=== PATIENT | male | born 1975 | race Caucasian/White ===

== ENCOUNTER 2019-09-09 13:06 | Outpatient (CLI) | payer BC, SELFPAY ==
--- NOTE | 2019-09-09 13:08 | CT_ITS ---
WS: [id number] CT HEAD TECHNIQUE: Noncontrast CT of the head obtained from the skullbase to the vertex. CLINICAL INFORMATION: AGRICULTURAL ADVISER SHUNT STATUS COMPARISON: DLP: 1058.[address] scans at [facility] use at least one of these dose optimization techniques: automat ed exposure control; mA and/or kV adjustment per patient size (includes targeted exams where dose is matched to clinical indication); or iterative reconstruction. FINDINGS: Stable right AGRICULTURAL ADVISER shunt catheter with tip in the right frontal horn near the foramen of Baron. No hydr ocephalus. No progressive hydrocephalus. Ventricular size has improved compared to previous. Mild pro minence of the third ventricle is slightly improved today measuring 9.6 mm compared to 10.8 mm previo us. Cerebellar atrophy with chronic atrophy of the midbrain and sarah. This is unchanged. Mastoid air cells are well aerated. Mild mucosal thickening in the ethmoid air cells. CT/CT head wo con* [id number] IMPRESSION: 1. Right AGRICULTURAL ADVISER shunt catheter with tip in the right frontal horn. No progressive hydrocephalus. Ventricular size is improved from previous. 2. Stable prominence of the third ventricle measuring 9 mm is slightly improve d from previous. 3. Stable atrophy of the midbrain and sarah with stable cerebellar atrophy. 4. No acute intracranial findings.
--- NOTE | 2019-09-09 13:08 | XR_ITS ---
WS: [id number] SKULL TECHNIQUE: 4 views of the skull CLINICAL INFORMATION: SQUIRREL MAN SHUNT STATUS COMPARISON: None. FINDINGS: Single lateral view of the skull. Programmable shunt valve. Medos shunt valve setting approximately 9 0 mm H20. Previously on November 27, 2018 shunt valve setting was approximately 100 mm H20 XR/XR skull <4V [id number] IMPRESSION: Medos shunt valve setting approximately 90 mm H20
== END 2019-09-09 13:07 | disposition home or self-care (01) ==
LOC: CT 13:12
PROVIDERS: Family Provider Family Medicine; PCP Family Medicine; Visit Provider Licensed Practical Nurse
DX: Z98.2 Presence of cerebrospinal fluid drainage device (principal)
CPT/HCPCS: 70250; 70450

== ENCOUNTER 2020-02-08 10:01 | Outpatient (CLI) | payer BC, SELFPAY ==
--- NOTE | 2020-02-08 10:27 | XR_ITS ---
WS: [id number] Shunt series, 02/08/2020 Clinical Data: Dizziness Comparison: Shunt series, 05/17/2016. Findings: The shunt tube is properly placed through a sin hole in the skull and appears to be in the region of the ventricles. The tube then descends through the right side of the neck, right side of t he chest and into the peritoneum. The tube ends on the left side of the peritoneum. No acute cardiop ulmonary disease or intra-abdominal disease is seen. XR/XR shunt series Impression: Satisfactory placement of ventriculoperitoneal shunt tube.
--- NOTE | 2020-02-08 10:27 | CT_ITS ---
WS: [id number] CT scan of the head, 02/08/2020 Clinical Data: Dizziness Comparison: CT head, 09/09/2019. DLP: 992.[address] scans at [facility] use at least one of these dose optimization techniques: automat ed exposure control; mA and/or kV adjustment per patient size (includes targeted exams where dose is matched to clinical indication); or iterative reconstruction. Findings: The right ventriculoperitoneal shunt catheter enters the right frontal craniotomy site and ends in th e right frontal horn of the right lateral ventricle. The ventricular dilatation has increased. The th ird ventricle now measures 1.3 cm in transverse diameter. The anterior horns, bodies and posterior ho rns of the lateral ventricles have also increased in size. The fourth ventricle is larger than was no naomi before with a greatest diameter of 4.1 cm. No abnormal intracerebral mass, hemorrhage or infarct is seen. The mastoid air cells, internal auditory canals, intraorbital contents, paranasal sinuses an d sella turcica remain the same. CT/CT head wo con* [id number] Impression: 1. Increasing size of the ventricles compared to prior study. 2. Shunt catheter appears to be in the same position compared to the prior stud y.
--- NOTE | 2020-02-10 16:03 | XR_ITS ---
WS: [id number] Lateral skull, 02/10/2020 Clinical Data: S/P BLEACHER LARD shunt Comparison: Shunt series, 02/08/2020. Findings: The shunt tube is overlying the cranial vault. A sin hole is apparent. The shunt tube appears to be in the same position as was seen 2 days ago.
== END 2020-02-08 10:02 | disposition home or self-care (01) ==
PROVIDERS: Family Provider Family Medicine; PCP Family Medicine; Visit Provider Licensed Practical Nurse
DX: R42 Dizziness and giddiness (principal); Z98.2 Presence of cerebrospinal fluid drainage device
CPT/HCPCS: 70250; 70450; 71046; 72040; 74019

== ENCOUNTER 2020-02-10 16:02 | Outpatient (CLI) | payer BC, SELFPAY ==
--- NOTE | 2020-02-10 | XR_ITS ---
WS: [id number] Lateral skull, 02/10/2020 Clinical Data: S/P AEMT shunt Comparison: Shunt series, 02/08/2020. Findings: The shunt tube is overlying the cranial vault. A sin hole is apparent. The shunt tube appears to be in the same position as was seen 2 days ago. XR/XR skull <4V [id number] Impression: No change in appearance of AEMT shunt
== END 2020-02-10 16:03 | disposition home or self-care (01) ==
LOC: RADWPI 16:04
PROVIDERS: Family Provider Family Medicine; PCP Family Medicine; Visit Provider Specialist
DX: Z98.2 Presence of cerebrospinal fluid drainage device (principal)
CPT/HCPCS: 70250

== ENCOUNTER 2020-09-19 13:38 | Outpatient (CLI) | payer OTHER, SELFPAY ==
--- NOTE | 2020-09-19 13:48 | CT_ITS ---
WS: [id number] CT HEAD NONCONTRAST HISTORY: Z92.89 - Personal history of other medical treatment TECHNIQUE: Contiguous axial imaging performed through the brain in 2.5 mm imaging. Bone and soft tiss ue windows. All CT scans at [facility] use at least one of these dose optimization techniq ues: automated exposure control; mA and/or kV adjustment per patient size (includes targeted exams wh ere dose is matched to clinical indication); or iterative reconstruction. DLP: 1058.18 mGycm COMPARISON: 11/09/2019 RIGHT frontal TUBE CUTTER OPERATOR shunt catheter terminates in the midline of the anterior horn of the lateral ventri nola. As compared to the prior examination the ventricles are now more slitlike. Significant decrease in size of the ventricles. 2 mm decrease in size of the third ventricle. Continued enlargement of the RIGHT ventricle with a maximum diameter of 3.8 cm. No hemorrhage. No atrophy or prior infarcts or herniation. Ventricles: Normal size with no hydrocephalus. Paranasal sinuses: As visualized are clear. Mastoid air cells: Well pneumatized. Calvarium and scalp: RIGHT frontal sin hole. CT/CT head wo con* [id number] IMPRESSION: 1. Significant decrease in size the lateral ventricles since 02/08/2020. Latera l ventricles are now slitlike. 2. RIGHT frontal TUBE CUTTER OPERATOR shunt catheter unchanged in position. 3. Minimal decrease in size of the third ventricle and the fourth ventricle s hugh the prior study.
== END 2020-09-19 13:39 | disposition home or self-care (01) ==
LOC: RADWPI 13:41
PROVIDERS: PCP Family Medicine; Visit Provider Licensed Practical Nurse
DX: Z92.89 Personal history of other medical treatment (principal)
CPT/HCPCS: 70450

== ENCOUNTER 2021-02-03 12:19 | Outpatient (CLI) | payer OTHER, MEDICAID, SELFPAY ==
--- NOTE | 2021-02-03 12:26 | CT_ITS ---
WS: [id number] CT HEAD WITHOUT AND WITH CONTRAST. TECHNIQUE: Noncontrast and contrast-enhanced CT of the head. CLINICAL INFORMATION: BILATERAL LOWER EXTRIMITY WEAKNESS AND SHUNT PLACEMENT COMPARISON: September 19, 2020 DLP: 2116.[address] scans at [facility] use at least one of these dose optimization techniques: automat ed exposure control; mA and/or kV adjustment per patient size (includes targeted exams where dose is matched to clinical indication); or iterative reconstruction. FINDINGS: Right frontal shunt catheter tip near the foramen of Baron. No evidence of intracranial hemorrhage. No extra-axial fluid collections. Third ventricle measures 11 mm unchanged from previous. Lateral gypsy tricular system and temporal horns are slightly more prominent compared to previous but remained deco mpressed. Fourth ventricular dilatation measuring 3.8 cm is unchanged. No significant progressive hyd rocephalus. Stable atrophy of the midbrain and sarah with vermian atrophy No abnormal intercranial enhancement. Mastoid air cells and paranasal sinuses are well aerated. CT/CT head wo/w con [id number] IMPRESSION: 1. Right frontal shunt catheter with tip near the foramen of Baron is unchang ed. 2. Third ventricle size is unchanged measuring 11 mm. 3. Minimal progression of the lateral ventricles and temporal horns which zoie in decompressed. 4. Dilatation of the fourth ventricle is stable. 5. No other significant changes.
[2021-02-03] MEDS: iohexol 300 mg/mL 100 mL Btl IV (12:45)
== END 2021-02-03 12:20 | disposition home or self-care (01) ==
LOC: RADWPI 12:24
PROVIDERS: PCP Family Medicine; Visit Provider Family Medicine
DX: M62.81 Muscle weakness (generalized) (principal); Z98.2 Presence of cerebrospinal fluid drainage device
CPT/HCPCS: 70470; Q9967

== ENCOUNTER 2021-03-02 08:19 | Outpatient (CLI) | payer OTHER, MEDICAID, SELFPAY ==
--- NOTE | 2021-03-02 08:38 | CT_ITS ---
WS: [id number] CT LUMBAR SPINE TECHNIQUE: Noncontrast CT of the lumbar spine with coronal and sagittal reformatted images after atte mpted myelogram. CLINICAL INFORMATION: WEAKNESS OF BOTH LOWER EXTREMITIES COMPARISON: None. DLP: 1857.[address] scans at [facility] use at least one of these dose optimization techniques: automat ed exposure control; mA and/or kV adjustment per patient size (includes targeted exams where dose is matched to clinical indication); or iterative reconstruction. FINDINGS: No significant intrathecal contrast. Small amount of mainly subdural contrast opacification. Small right riblet at T12. More normal size left T12 rib. Rudimentary disc space at L5-S1. L5 is cons idered sacralized for the purposes of this dictation. Slight retrolisthesis L4 on L5. No high-grade central canal stenosis. Tapering and narrowing of the t hecal sac distally. Mild hypertrophic changes in the mid lower lumbar spine. Disc space heights relat ively well-preserved. L1-L2: Normal. L2-L3: Mild annular bulging with a tiny shallow central protrusion. Slight effacement of ventral thec al sac. Spinal canal and foramen are patent. Mild facet arthropathy with mild ligamentum flavum hyper trophy. L3-L4: Mild disc bulging with slight osteophytic ridging. Slight effacement of ventral thecal sac. Mi ld central canal stenosis. Moderate facet arthropathy with ligamentum flavum hypertrophy. Mild bilate ral foraminal narrowing. L4-L5: Left eccentric disc bulging with impingement on the exiting left L4 nerve root. Mild/moderate left L4-5 foraminal narrowing. Right foramen is patent. Mild facet arthropathy. L5-S1: L5 is sacralized. Spinal canal and foramen are patent at this level. Visualized pelvic bony structures: Normal. Paravertebral soft tissues: Normal. CT/CT lumbar spine wo con* [id number] IMPRESSION: 1. Small right-sided riblet at T12. L5 is considered sacralized for the purpos es of this dictation with a rudimentary disc space. 2. Normal lumbar alignment. No acute compression. No high-grade central canal stenosis. 3. Mild disc bulging with osteophytic ridging L4-5 eccentric to the left. This impinges the exiting left L4 nerve root with mild to moderate left foraminal n arrowing. Correlation for left L4 nerve root symptoms. This could be further ev aluated with MRI. 4. Mild central canal stenosis L3-4 with mild annular bulging in combination w ith moderate facet arthropathy and ligamentum flavum hypertrophy. Slight narrow ing of the subarticular recess bilaterally. Mild bilateral foraminal narrowing.
--- NOTE | 2021-03-02 10:26 | XR_ITS ---
WS: [id number] LUMBAR SPINE TECHNIQUE: 3 views of the lumbar spine CLINICAL INFORMATION: ATTEMPTED MYELOGRAM, UNABLE TO INJECT COMPARISON: No prior lumbar spine imaging for comparison. FINDINGS: The procedure including risks, benefits, and complications were discussed with the patient who agreed to proceed. The patient was prepped and draped in usual sterile fashion. After 1% lidocaine, using f luoroscopic guidance, the L4-5 level was selected. Unable to obtain reliable CSF flow at the L4-5 lev el. Test injections of contrast were administered with subdural or epidural opacification. No signifi cant intrathecal contrast was achieved. Considering no recent lumbar spine imaging, procedure was kari ndoned and noncontrast CT was obtained. 5 inch 22-gauge spinal needle was utilized. No immediate complications. XR/XR lumbar spine 2-3V* [id number] IMPRESSION: Attempted lumbar myelogram. No significant intrathecal contrast flow was achiev ed. See following CT report for anatomic detail.
== END 2021-03-02 08:20 | disposition home or self-care (01) ==
PROVIDERS: PCP Family Medicine; Visit Provider Family Medicine
DX: M62.81 Muscle weakness (generalized) (principal); M48.061 Spinal stenosis, lumbar region without neurogenic claudication; M51.26 Other intervertebral disc displacement, lumbar region; M25.78 Osteophyte, vertebrae
CPT/HCPCS: 72100; 72131